=== PATIENT | female | born 1980 | race Caucasian/White ===

== ENCOUNTER 2020-08-09 00:40 | Outpatient (CLI) | payer OTHER, SELFPAY ==
[2020-08-09 18:12] LABS: SARS-CoV-2 RNA PCR Negative
== END 2020-08-09 00:41 | disposition home or self-care (01) ==
LOC: ANHCOVIDDT 00:41
PROVIDERS: Anesthesiology; Visit Provider Obstetrics & Gynecology
DX: Z01.812 Encounter for preprocedural laboratory examination (principal); Z20.828 Contact with and (suspected) exposure to other viral communicable diseases
CPT/HCPCS: 87635; C9803; U0003

== ENCOUNTER 2020-08-11 02:03 | Day surgery (SDC) | payer OTHER, SELFPAY ==
[2020-07-26 14:49] VITALS: BMI 27.6
[2020-08-11] VITALS (8 sets, daily range): BP systolic 122–157; BP diastolic 84–107; PULSE 56–99; RESP 14–20; TEMP 36.3–37.1; O2SAT 99–100
--- NOTE | 2020-08-11 05:38 | WPDANESEPP ---
Anes - Eval Pre Procedure Procedure: Operation Date: 08/11/20 07:30 Proposed Procedures p Laparoscopic Bilateral Tubal Sterilization with Cautery - Mindy Moncada MD Date/Time: 08/11/20 05:38 Pre Op Diagnosis: sterilzation Patient Data Age: 39 Gender: F Height: 5 ft 5 in Weight: 75.3 kg Allergies Allergy/AdvReac Type Severity Reaction Status Date / Time Opioids - Morphine Analogues AdvReac Intermediate vomit/ Verified 07/26/20 14:46 nausea Home Medications Medication Instructions Recorded Confirmed Type bupropion HCl [Wellbutrin XL] 300 mg PO QAM 07/26/20 07/26/20 History fexofenadine [Ofe Allergy] 60 mg PO Q12H 07/26/20 07/26/20 History hydroxyzine HCl 50 mg PO DAILY 07/26/20 07/26/20 History lamotrigine 200 mg PO BID 07/26/20 07/26/20 History melatonin 10 mg PO HS PRN 07/26/20 07/26/20 History valacyclovir 200 mg BYMOUTH PRN PRN 07/26/20 07/26/20 History Patient hx anesthesia problems: post op nausea/vomiting Family hx anesthesia problems: none PMFSH Past Medical History Medical History Anxiety and depression Bipolar 1 disorder History of alcohol abuse History of smoking History of substance abuse PONV (postoperative nausea and vomiting) Vapes nicotine containing substance Surgical History Surgical History (Updated 08/11/20 @ 05:41 by Bo Fletcher CRNA) History of cholecystectomy Social History Social History Smoking packs per day: 1 Smoking cigarettes per day: 20.0 Years smoked: 20 Smoking pack-years: 20.00 Smoking status: Former smoker Tobacco type: cigarettes Smokeless tobacco user: other Smoking end date: 02/12/19 Additional smoking assessment comments: E cig at this time Alcohol intake: former Alcohol use details: Clean for 2 years Substance use: former Substance use type: former substance user Other substance usage details: 2 years clean Living arrangements: with family Gender identity (if verbalized by the patient): Female Sexual Orientation (if Verbalized by the Patient): Straight or Heterosexual Spiritual care concerns: No Exam Day of Procedure 08/11/20 05:38
--- NOTE | 2020-08-11 06:07 | ECG_ITS ---
Measurements Intervals [place] Rate: 72 P: 34 HI: 166 QRS: -17 QRSD: 104 T: -8 QT: 394 QTc: 432 Interpretive Statements SINUS RHYTHM DELAYED PRECORDIAL R/S TRANSITION VOLTAGE CRITERIA FOR LVH BORDERLINE T WAVE ABNORMALITY- ANTEROLAT/INF LEADS BASELINE ARTIFACT- I, III, AVR, AVL BORDERLINE ECG Electronically Signed On 08-11-2020 8:11:51 CDT by Raf Pisano D.O.
--- NOTE | 2020-08-11 07:07 | WPDANESEFPP ---
Anes - Eval Final PreProcedure Day of Procedure 08/11/20 07:07 Patient weight: overweight Heart: regular rate and rhythm Lungs: clear to auscultation Airway: Mallampati scale class II Neurological: alert and oriented Last oral intake: >/= 8 hours ASA classification: III Emergent: no Anesthetic plan: proceed Anesthesia type and monitoring: general ETT and standard monitoring Informed Consent: The patient's anesthetic plan and its attendant risks and benefits were discussed with the patient/family/POA. Questions were solicited and answers provided to the satisfaction of the patient/family/POA.
--- NOTE | 2020-08-11 07:08 | WPDHPUPDATE1 ---
History and Physical Update Update Date/Time: 08/11/20 07:08 History and Physical has been reviewed, including an updated exam of the patient. There are NO changes in the patient's condition. Risks, benefits, and alternatives have been discussed and questions answered. Patient agrees to proceed with procedure.
[2020-08-11] MEDS: LACTATED RINGERS 1,000 ML 30 ML IV CONT ×2 (07:12→08:49)
[2020-08-11] MEDS: ACETAMINOPHEN 500 MG TABLET 1000 MG PO (07:15)
[2020-08-11] MEDS: KETOROLAC 15 MG/ML VIAL (*BKC) IV PUSH (07:15)
--- NOTE | 2020-08-11 08:09 | PM.PROC ---
Procedure Note - Detailed Date of procedure: 08/11/20 Pre-op diagnosis: sterilzation Post-op diagnosis: same Procedure performed: Laparoscopic bilateral tubal ligation Description of procedure: Patient was taken the operating room. She has prepped draped in the dorsal lithotomy position after induction of general anesthesia. A 5 mm abdominal incision was made in left upper quadrant of the abdomen with scalpel. A 5 mm trocars inserted the intra-abdominal cavity under direct visualization of the scope. Pneumoperitoneum was achieved. A 5 mm periumbilical incision was made using a scalpel on the abdominal scan. A 5 mm trocar was inserted the intra-abdominal cavity under visualization of the scope. The fallopian tube was grasped with the bipolar cautery in the ampullary region. It was completely desiccated in a 1.5 cm area of the fallopian tube. This was performed in identical fashion on the contralateral side. The instruments were withdrawn. The pneumoperitoneum was reduced. The trocars were removed. The skin was closed with subcuticular 4 Monocryl. This incisions were covered with Dermabond. The patient tolerated the procedure well. She was taken to recover room in stable condition. Anesthesia: GETA Surgeon: Mindy Moncada MD Estimated blood loss (mL): 10 Drains: No Packing: No Pathology: none sent Complications: No immediate complications Condition: stable Disposition: PACU Findings: Normal female pelvic anatomy.
--- NOTE | 2020-08-11 10:38 | SUR.PHASEII ---
1015 - pt's sister called in regards to ride.
== END 2020-08-11 11:10 | disposition home or self-care (01) ==
PROVIDERS: PCP Nurse Practitioner; Visit Provider Obstetrics & Gynecology
PROC: (CPT 58671; principal; 2020-08-11 07:30)
DX: Z30.2 Encounter for sterilization (principal); F31.9 Bipolar disorder, unspecified; F41.8 Other specified anxiety disorders; F17.290 Nicotine dependence, other tobacco product, uncomplicated
CPT/HCPCS: 58670; 93005; A9270; J1100; J1200; J1885; J2250; J2405; J2704; J2710; J3010; J7120

== ENCOUNTER 2021-06-06 16:31 | Emergency (ER) | payer OTHER, SELFPAY ==
[2021-06-06 16:44] VITALS: BP 138/90; PULSE 76; RESP 20; TEMP 36.7; O2SAT 100
--- NOTE | 2021-06-06 17:02 | ED.SKABFB ---
HPI - Skin/Abscess/Foreign Bdy General Chief complaint: Skin/Abscess/Foreign Body Stated complaint: knots under arms Time Seen by Provider: 06/06/21 17:02 Source: patient and family History of Present Illness HPI narrative: patient presents with tender areas under her left axillae. no drainage no history of abscess. Related Data Home Medications Medication Instructions Recorded Confirmed bupropion HCl [Wellbutrin XL] 300 mg PO QAM 07/26/20 06/06/21 hydroxyzine HCl 50 mg PO Q6H PRN 07/26/20 06/06/21 lamotrigine 200 mg PO BID 07/26/20 06/06/21 melatonin 10 mg PO HS PRN 07/26/20 06/06/21 bupropion HCl 150 mg PO QAM 06/06/21 06/06/21 Allergies Allergy/AdvReac Type Severity Reaction Status Date / Time Opioids - Morphine Analogues AdvReac Intermediate RECOVERING Verified 06/06/21 16:55 ADDICT, N/V Review of Systems Review of Systems: CONSTITUTIONAL: Denies fever, chills, or sweats. EYES: Denies visual changes, redness, or discharge. ENT: Denies rhinorrhea, congestion, sore throat, or otalgia. CARDIOVASCULAR: Denies chest pain, palpitations, or edema. RESPIRATORY: Denies cough or dyspnea. GASTROINTESTINAL: Denies abdominal pain, nausea, vomiting, or diarrhea. GENITOURINARY: Denies dysuria or hematuria. SKIN: Denies rash or itching. MUSCULOSKELETAL: Denies back pain, joint pain, or myalgia. NEUROLOGIC: Denies headache, numbness, or weakness. PSYCHIATRIC: Denies anxiety or depression. [facility] Past Medical History Medical History Anxiety and depression Bipolar 1 disorder History of alcohol abuse History of smoking History of substance abuse PONV (postoperative nausea and vomiting) Vapes nicotine containing substance Surgical History Surgical History (Updated 08/11/20 @ 05:41 by Bo Fletcher CRNA) History of cholecystectomy Social History Social History Smoking packs per day: 1 Smoking cigarettes per day: 20.0 Years smoked: 20 Smoking pack-years: 20.00 Smoking status: Former smoker Tobacco type: cigarettes Smokeless tobacco user: other Smoking end date: 04/10/19 Additional smoking assessment comments: E cig at this time Alcohol intake: former Alcohol use details: Clean for 2 years Substance use: former Substance use type: former substance user Other substance usage details: 2 years clean Gender identity (if verbalized by the patient): Female Spiritual care concerns: No Comments At time of signature, agree with nursing past medical, surgical, social and family history. There is no relevant family history pertinent to the presenting complaint Exam Narrative: GENERAL: Well-appearing, well-nourished, and in no acute distress. HEAD: Normocephalic, atraumatic. EYES: PERRLA and EOMI. ENT: Nares clear, no rhinorrhea or epistaxis. Mucous membranes moist. NECK: Supple. CHEST: Clear to auscultation. No respiratory distress. HEART: Regular rate and rhythm. No murmur heard. Normal peripheral pulses. ABDOMEN: Soft, nontender, nondistended, normal active bowel sounds. 2 cm area of tenderness and redness under left axillary no fluctuation no induration no need for I&D. 3 cm area under right axilla area no fluctuance no induration no need for I&D EXTREMITIES: Normal range of motion. No edema. SKIN: Warm, dry, no rash. NEURO: No focal deficits. Alert and oriented x3. [place] Coma Scale Eye Opening: Spontaneous 4 Hardik Coma Scale Motor: Obeys Commands 6 Hardik Coma Scale Verbal: Oriented 5 [place] Coma Scale Total 15 Course Vital Signs Vital signs: Vital Signs Temperature 36.7 C 06/06/21 16:44 Pulse Rate 76 06/06/21 16:44 Respiratory Rate 20 06/06/21 16:44 Blood Pressure 138/90 06/06/21 16:44 Pulse Oximetry 100 06/06/21 16:44 Temperature 36.7 C 06/06/21 16:44 Pulse Rate 76 06/06/21 16:44 Respiratory Rate 20 06/06/21 16:44 Blood Pressure 138/90 06/06/21 16:44 Pulse Oximetry 100
== END 2021-06-06 17:14 | disposition home or self-care (01) ==
PROVIDERS: Emergency Provider Nurse Practitioner Family; PCP Nurse Practitioner
DX: L02.412 Cutaneous abscess of left axilla (principal); L02.411 Cutaneous abscess of right axilla; F17.200 Nicotine dependence, unspecified, uncomplicated; F41.9 Anxiety disorder, unspecified; F31.9 Bipolar disorder, unspecified
CPT/HCPCS: 99213; G0463

== ENCOUNTER 2022-03-03 10:03 | Outpatient (CLI) | payer OTHER, SELFPAY ==
--- NOTE | ~2022-03-03 | MMUS_ITS ---
EXAMINATION: MM diagnostic laina BI w kristine, US breast BI complete HISTORY: Bilateral breast lumps. Right breast pain. TECHNIQUE: Additional 3-D tomosynthesis images of the breasts were performed and synthetic 2-D images were generated. CAD analysis was submitted and interpreted. High resolution complete bilateral breas t ultrasound was performed. COMPARISON: 03/03/2022 BREAST PARENCHYMAL COMPOSITION: The breasts are heterogenously dense, which may obscure small masses FINDINGS: MAMMOGRAPHIC FINDINGS: There are no suspicious masses, calcifications or architectural distortion in either breast to sugges t malignancy. ULTRASOUND: Complete bilateral US of all 4 quadrants of the breasts and retroareolar region was reviewed. In the right breast at 12:30 there is a 5 mm cyst. There are small bilateral axillary lymph nodes with tesfaye l fatty hilum. No sonographic evidence for malignancy in either breast. IMPRESSION: 1. No evidence for malignancy in either breast. 2. Routine yearly screening mammogram and regular clinical breast examination are recommended. BI-RADS Category 2: Benign finding(s). Reviewed, dictated and finalized at location A. IMPRESSION: 1. No evidence for malignancy in either breast. 2. Routine yearly screening mammogram and regular clinical breast examination a re recommended. BI-RADS Category 2: Benign finding(s).
== END 2022-03-03 10:04 | disposition home or self-care (01) ==
PROVIDERS: PCP Nurse Practitioner; Visit Provider Nurse Practitioner Obstetrics & Gynecology
DX: Z12.31 Encounter for screening mammogram for malignant neoplasm of breast (principal); N63.20 Unspecified lump in the left breast, unspecified quadrant
CPT/HCPCS: 76641; 77062; 77066; G0279

== ENCOUNTER 2022-04-18 00:11 | Day surgery (SDC) | payer OTHER, SELFPAY ==
[2022-04-11 11:55] VITALS: BMI 25.1
--- NOTE | 2022-04-11 12:05 | PC.NURSE ---
Report to the Outpatient Waiting Room, entrance under the green pavilion located off [facility], at time 0630 on date 04/18/22. OR Time: 0830. - You and your visitor will be asked a series of questions to screen for COVID 19 for your protection. - Only one visitor is allowed at this time. - The patient visitor is requested to leave or wait in car when not with patient. - A mask is required within the hospital. Patients may have clear liquids (water, carbonated beverages, clear teas, apple juice) until 3 hours prior to surgery with a maximum of 20 ounces. - No food from midnight until time of surgery - Infants may have breast milk until 4 hours before surgery, formula 6 hours prior to surgery. - Children will be allowed to drink immediately following surgery. If applicable, please bring a bottle or sippy cup to assist with drinking. Juice, water, soda, and popsicles are readily available. For infants on formula, please bring formula the day of surgery. Pacifiers are allowed. Take the following medications with a SIP of water the morning of surgery: BUPROPION, LAMOTRIGINE, SEROQUEL, VALACYCLOVIR, HYDROXYZINE (IF NEEDED) Medications to discontinue per physician: VITAMINS/SUPPLEMENTS Date to take last dose: 04/14/22 Please no make-up, nail bengali, hairspray, perfume, deodorant, or body powder the day of surgery. No jewelry (including any body piercings) or valuables the day of surgery, leave them at home. Please take a shower or bath the night before, or the morning of, surgery with an antibacterial soap. Wear comfortable, loose fitting clothing. - Jewelry must be removed prior to entering the operating room. Rings and piercings that are not removed may be cut off. - The hospital will not accept responsibility for valuables. - Please leave all valuables, including medications, at home the day of surgery. If you are going home after surgery, a licensed courtesy driver must drive you home. - NO public transportation without another adult. - We recommend that an adult stay with you for 24 hours following discharge. - We also recommend that you do not drive, make important decision, drink alcoholic beverages, or take any drugs that were not prescribed by your health care provider for at least 24 hours after your discharge time. Follow any additional instructions given to you from your surgeon. If you or anyone in your household have experienced Covid symptoms in the past week, please notify your surgeon or the nurse liaison at the phone number below for possible testing. Telephone instructions given to AILYN OLMSTEAD and asked if any additional questions and then verbalized understanding. Patient advised to call surgeon office or pre surgery nurse liaison [phone] if any additional questions.
--- NOTE | 2022-04-17 13:13 | P.PNAN_ITS ---
Anes - Initial Pre Proc Eval Procedure: Operation Date: 04/18/22 08:30 Proposed Procedures p Hysteroscopy Dilation and Curettage Lidia Endometrial Ablation - Mindy Moncada MD Date/Time: 04/17/22 13:13 Surgeon: Mindy Moncada MD Pre Op Diagnosis: Menorrhagia Patient Data Age: 41 Gender: F Height: 1.65 m Weight: 68.5 kg Allergies Allergy/AdvReac Type Severity Reaction Status Date / Time Opioids - Morphine Analogues AdvReac Intermediate RECOVERING Verified 04/18/22 06:55 ADDICT, N/V Home Medications Medication Instructions Recorded Confirmed Type bupropion HCl 300 mg 24 hr tablet, 300 mg PO QAM 07/26/20 04/18/22 History extended release (Wellbutrin XL) hydroxyzine HCl 50 mg tablet 50 mg PO Q6H PRN Anxiety 07/26/20 04/18/22 History lamotrigine 200 mg tablet 200 mg PO BID 07/26/20 04/18/22 History melatonin 10 mg capsule 10 mg PO HS PRN Insomnia 07/26/20 04/18/22 History bupropion HCl 150 mg 24 hr tablet, 150 mg PO QAM 06/06/21 04/18/22 History extended release quetiapine 50 mg tablet (Seroquel) 50 mg PO BID 04/11/22 04/18/22 History valacyclovir 500 mg tablet 1 tablet PO DAILY PRN Cold Sores 04/11/22 04/18/22 History Patient hx anesthesia problems: none Family hx anesthesia problems: none Results Review: All pre-operative results and documents have been reviewed as part of the pre- operative evaluation. [facility] Past Medical History Medical History Anxiety and depression Bipolar 1 disorder History of alcohol abuse History of smoking History of substance abuse PONV (postoperative nausea and vomiting) Vapes nicotine containing substance Surgical History Surgical History (Updated 08/11/20 @ 05:41 by Bo Fletcher CRNA) History of cholecystectomy Social History Social History Smoking packs per day: 1 Smoking cigarettes per day: 20.0 Years smoked: 18 Smoking pack-years: 18.00 Smoking status: Former smoker Tobacco type: e-cigarettes/vaping Smokeless tobacco user: other Smoking end date: 11/05/18 Additional smoking assessment comments: QUIT CIGARETTES, NOW VAPING Alcohol intake: former Alcohol use details: 4 YEARS SOBER Substance use: former Substance use type: former substance user Other substance usage details: 2 years clean Last use: 4 YEARS Living arrangements: with family Gender identity (if verbalized by the patient): Female Sexual Orientation (if Verbalized by the Patient): Straight or Heterosexual Spiritual care concerns: No Anes - Eval Final PreProcedure Day of Procedure 04/17/22 13:13 Patient weight: normal Heart: regular rate and rhythm Lungs: clear to auscultation Airway: Mallampati scale class II Neurological: alert and oriented Last oral intake: >/= 8 hours ASA classification: II Emergent: no Anesthetic plan: proceed Anesthesia type and monitoring: general GIVS and standard monitoring Results Review: All pre-operative results and documents have been reviewed as part of the pre-operative evaluation. Informed Consent: The patient's anesthetic plan and its attendant risks and benefits were discussed with the patient/family/POA. Questions were solicited and answers provided to the satisfaction of the patient/family/POA.
[2022-04-18 06:52] VITALS: BP 132/93; PULSE 80; RESP 18; TEMP 36.9; O2SAT 100
[2022-04-18] MEDS: LACTATED RINGERS 1,000 ML 30 ML IV CONT (07:05)
[2022-04-18] MEDS: ACETAMINOPHEN 500 MG TABLET 1000 MG PO (07:06)
--- NOTE | 2022-04-18 08:28 | WPDHPUPDATE1 ---
History and Physical Update Update Date/Time: 04/18/22 08:28 History and Physical has been reviewed, including an updated exam of the patient. There are NO changes in the patient's condition. Risks, benefits, and alternatives have been discussed and questions answered. Patient agrees to proceed with procedure.
[2022-04-18 09:10] VITALS: BP 146/85; PULSE 76; RESP 12; O2SAT 100
--- NOTE | 2022-04-18 09:15 | W.PM.PROC2 ---
Procedure Note - Detailed Date of Procedure 04/18/22 Pre-op Diagnosis Menorrhagia Post-op Diagnosis Same Procedure Performed endometrial ablation with hysteroscopy d&c Surgeon Mindy Moncada MD Anesthesia MAC Indications Severe menorrhagia Findings Normal vulva vagina and cervix. Normal endometrium. Description of Procedure The patient was taken to the operating room. She was prepped and draped in the dorsal lithotomy position after induction of mac anesthesia. A speculum was placed in the vagina. Cervix grasped with a tenaculum. The cervix was dilated to about 1 cm. The hysteroscope was inserted. The above findings were noted. Endometrial curettage was performed with a medium-size curette. All surfaces of the endometrium were affected by the curettage. The specimens were collected and sent to pathology. Measurements were taken of the uterus and cervix. The uterine length was then entered into the hand piece of the Lidia device. The device was inserted into the intrauterine cavity. The array of the device was expanded. The balloon cuff was inflated. A good seal was achieved. The energy and safety cycles were initiated and completed. The array was collapsed and the instrument was withdrawn after deflating the balloon cuff. Hysteroscope was reinserted. Above findings were noted. The hysteroscope was removed. The patient tolerated the procedure well. The speculum and tenaculum were removed. She was taken to recovery in stable condition. Sponge lap and needle counts were correct x2. Estimated Blood Loss 15 Pathology Yes Complications No immediate complications Condition Stable Disposition Same day
[2022-04-18 09:30] VITALS: BP 138/90; PULSE 57; RESP 16
[2022-04-18] MEDS: KETOROLAC 30 MG/ML VIAL (*BKC) IV PUSH (10:04)
== END 2022-04-18 11:00 | disposition home or self-care (01) ==
PROVIDERS: Visit Provider Obstetrics & Gynecology
PROC: 0U5B8ZZ Destruction of Endometrium, Via Natural or Artificial Opening Endoscopic (ICD-10-PCS; CPT 58563; principal; 2022-04-18 08:30)
DX: N92.0 Excessive and frequent menstruation with regular cycle (principal); F31.9 Bipolar disorder, unspecified; F41.9 Anxiety disorder, unspecified; F17.290 Nicotine dependence, other tobacco product, uncomplicated
CPT/HCPCS: 58563; 88305; A9270; J1885; J2250; J2704; J3010; J7120

== ENCOUNTER 2022-11-04 12:59 | Outpatient (CLI) | payer OTHER, SELFPAY ==
--- NOTE | 2022-11-04 13:14 | ECG_ITS ---
Measurements Intervals [place] Rate: 70 P: 53 [place]: 163 QRS: -16 QRSD: 101 T: 33 QT: 406 QTc: 440 Interpretive Statements SINUS RHYTHM BORDERLINE ST-T WAVE ABNORMALITY- DIFFUSE LEADS BORDERLINE ECG COMPARED TO ECG 08/11/2020 07:17:14 NO SIGNIFICANT CHANGES Electronically Signed On 11-05-2022 7:33:22 [employer] by Raf Pisano D.O.
== END 2022-11-04 13:00 | disposition home or self-care (01) ==
LOC: ANHCARD 13:01
PROVIDERS: Visit Provider Anesthesiology
DX: Z87.891 Personal history of nicotine dependence (principal); Z01.818 Encounter for other preprocedural examination; R94.31 Abnormal electrocardiogram [ECG] [EKG]
CPT/HCPCS: 93005

== ENCOUNTER 2022-11-08 00:56 | Day surgery (SDC) | payer OTHER, SELFPAY ==
[2022-10-23 15:58] VITALS: BMI 24.1
--- NOTE | 2022-10-23 16:11 | PC.NURSE ---
Addendum entered by Aaliyah Guaman RN 10/23/22 17:32: surgery date 11/08/2022 Original Note: Report to the Outpatient Waiting Room, entrance under the green pavilion located off [facility], at time 0600 on date 11/08/2021. Planned Procedure Time: 0730. Time changes happen often and if your time is changed the preop area will call you the afternoon before. - You and your visitor will be asked to self-screen and do not enter if you have any COVID symptoms. - Only one visitor is requested with a max of two and NO children visitors are allowed at this time. - The patient visitor may be requested to leave or wait in car when not with patient due to distancing restrictions. - A mask is optional within the hospital. Patients may have clear liquids (water, carbonated beverages, clear teas, apple juice) until 3 hours prior to surgery with a maximum of 20 ounces. 0430 - No food from midnight until time of surgery - Infants may have breast milk until 4 hours before surgery, infant formula 6 hours prior to surgery. - Children will be allowed to drink immediately following surgery. If applicable, please bring a bottle or sippy cup to assist with drinking. Juice, water, soda, and popsicles are readily available. For infants on formula, please bring formula the day of surgery. Pacifiers are allowed. Take the following medications with a SIP of water the morning of surgery: Wellbutrin, Lamictal, Seroquel, Vistaril, Meclizine, Valacyclovir Medications to discontinue per physician None Date to take last dose N/A Please no make-up, nail uzbek, hairspray, perfume, deodorant, or body powder the day of surgery. No jewelry (including any body piercings) or valuables the day of surgery, leave them at home. Please take a shower or bath the night before, or the morning of, surgery with an antibacterial soap. Wear comfortable, loose fitting clothing. Children are encouraged to wear pajamas. - Jewelry must be removed prior to entering the operating room. Rings and piercings that are not removed may be cut off. - The hospital will not accept responsibility for valuables. - Please leave all valuables, including medications, at home the day of surgery. If you are going home after surgery, a licensed class c truck driver must drive you home. - NO public transportation without another adult if you receive anesthesia. - We recommend that an adult stay with you for 24 hours following discharge. - We also recommend that you do not drive, make important decision, drink alcoholic beverages, or take any drugs that were not prescribed by your health care provider for at least 24 hours after your discharge time. For Pediatric surgeries, we recommend two adults accompany the child home. Follow any additional instructions given to you from your surgeon. If you or anyone in your household have experienced Covid symptoms in the past week, please notify your surgeon or the nurse liaison at the phone number below for possible testing. Telephone instructions given to Leana Mao and asked if any additional questions and then verbalized understanding. Patient advised to call surgeon office or pre surgery nurse liaison [phone] if any additional questions.
--- NOTE | 2022-11-07 14:34 | P.PNAN_ITS ---
Anes - Initial Pre Proc Eval Procedure: Operation Date: 11/08/22 07:30 Proposed Procedures p Robotic Assisted Hysterectomy with Bilateral Salpingectomy - Mindy Moncada MD Date/Time: 11/07/22 14:34 Surgeon: Mindy Moncada MD Pre Op Diagnosis: menorrhaghia Patient Data Age: 41 Gender: F Height: 1.65 m Weight: 65.9 kg Allergies Allergy/AdvReac Type Severity Reaction Status Date / Time Opioids - Morphine Analogues AdvReac Intermediate RECOVERING Verified 04/18/22 06:55 ADDICT, N/V Home Medications Medication Instructions Recorded Confirmed Type bupropion HCl 300 mg 24 hr tablet, 300 mg PO QAM 07/26/20 10/23/22 History extended release (Wellbutrin XL) hydroxyzine HCl 50 mg tablet 50 mg PO Q6H PRN Anxiety 07/26/20 10/23/22 History lamotrigine 200 mg tablet 200 mg PO BID 07/26/20 10/23/22 History bupropion HCl 150 mg 24 hr tablet, 150 mg PO QAM 06/06/21 10/23/22 History extended release quetiapine 50 mg tablet (Seroquel) 50 mg PO BID 04/11/22 10/23/22 History valacyclovir 500 mg tablet 1 tablet PO DAILY PRN Cold Sores 04/11/22 11/08/22 History meclizine 25 mg tablet 25 mg PO PRN 10/23/22 10/23/22 History Patient hx anesthesia problems: none Family hx anesthesia problems: none Results Review: All pre-operative results and documents have been reviewed as part of the pre- operative evaluation. [facility] Past Medical History Medical History Anxiety and depression Bipolar 1 disorder History of alcohol abuse History of smoking History of substance abuse Vapes nicotine containing substance Surgical History Surgical History (Updated 08/11/20 @ 05:41 by Bo Fletcher CRNA) History of cholecystectomy Social History Social History Smoking packs per day: 1.5 Smoking cigarettes per day: 30.0 Years smoked: 25 Smoking pack-years: 37.50 Smoking status: Former smoker Tobacco type: e-cigarettes/vaping Smokeless tobacco user: other Smoking end date: 11/05/18 Additional smoking assessment comments: QUIT CIGARETTES, NOW VAPING Alcohol intake: former Alcohol use details: Recovering Alcoholic Substance use: former Substance use type: crack/cocaine and methamphetamine Other substance usage details: Jun 2022- 4yrs clean Last use: 4 YEARS Living arrangements: with family Gender identity (if verbalized by the patient): Female Sexual Orientation (if Verbalized by the Patient): Straight or Heterosexual Spiritual care concerns: No Anes - Eval Final PreProcedure Day of Procedure 11/07/22 14:34 Patient weight: normal Heart: regular rate and rhythm Lungs: clear to auscultation Airway: Mallampati scale class II Neurological: alert and oriented Last oral intake: >/= 8 hours ASA classification: III Emergent: no Anesthetic plan: proceed Anesthesia type and monitoring: general ETT and standard monitoring Results Review: All pre-operative results and documents have been reviewed as part of the pre- operative evaluation. Informed Consent: The patient's anesthetic plan and its attendant risks and benefits were discussed with the patient/family/POA. Questions were solicited and answers p rovided to the satisfaction of the patient/family/POA.
[2022-11-08] VITALS (13 sets, daily range): BP systolic 124–154; BP diastolic 77–97; PULSE 55–84; RESP 10–16; TEMP 36.2–37; O2SAT 97–100
[2022-11-08] MEDS: ACETAMINOPHEN 500 MG TABLET 1000 MG PO ×3 (06:30→21:11)
[2022-11-08] MEDS: LACTATED RINGERS 1,000 ML 30 ML IV CONT ×2 (06:46→09:14)
[2022-11-08] MEDS: KETOROLAC 15 MG/ML VIAL (*BKC) IV PUSH (06:56)
--- NOTE | 2022-11-08 07:11 | WPDHPUPDATE1 ---
History and Physical Update Update Date/Time: 11/08/22 07:11 History and Physical has been reviewed, including an updated exam of the patient. There are NO changes in the patient's condition. Risks, benefits, and alternatives have been discussed and questions answered. Patient agrees to proceed with procedure.
[2022-11-08] MEDS: MORPHINE SULFATE (*CRX) 2 MG/ML INJ IV PUSH (09:41)
[2022-11-08] MEDS: ONDANSETRON INJ 4 MG/2 ML VIAL IV PUSH ×3 (09:44→21:10)
--- NOTE | 2022-11-08 09:48 | W.PM.PROC2 ---
Procedure Note - Detailed Date of Procedure 11/08/22 Pre-op Diagnosis menorrhaghia Post-op Diagnosis Same Procedure Performed Robot assisted Total hysterectomy with bilateral salpingectomy. Surgeon Mindy Moncada MD Anesthesia General Indications heavy vaginal bleeding, pelvic pain Findings normal-appearing uterus, ovaries, and left tube, right tube was partially resected. Some scarring over the posterior cul-de-sac peritoneum. Description of Procedure This patient was taken to the operating room. She was prepped and draped in the dorsal lithotomy position after induction of general anesthesia. The uterine manipulator and Raphael cup were placed. This was done with a speculum and tenaculum. The speculum was placed. The cervix was grasped with a tenaculum. The stay sutures were placed at 3 and 9:00 a.m.. The stay sutures of 0 Vicryl were tied to the appropriately Size scope after it was slipped around the cervix.. The tip of the DARRELL manipulator was placed in the intrauterine cavity. The cup was slid into place around the cervix and into the fornices. It was locked into place. The sutures were then wrapped around the handle and tied under tension. A 8 mm skin incision was made in the left upper quadrant the abdomen. a 5 mm Visiport trocar was inserted into abdominal cavity and pneumoperitoneum was achieved. A 8 mm supraumbilical incision was made and a 8 mm trocar was inserted into the intrauterine cavity under direct visualization of the scope. an 8 mm incision was made in the right upper quadrant of the abdomen and an 8 mm robotic trocar was placed the inter uterine cavity under direct visualization the scope. An 11 mm trocar was inserted in the right upper quadrant of the abdomen rectal is a cystoscope after an incision was made there as well. The robot was docked. Electronic Orientation of the robot was performed. Bilateral ureteral lysis was performed. This was done from the pelvic brim down to the uterine artery. This was done with careful dissection using sharp and blunt dissection. The fallopian tubes were removed bilaterally. The mesosalpinx around the fallopian tubes were cauterized transected with LigaSure cautery. This was done in a bilateral fashion from the ovary to the uterine cornua. The fallopian tube was transected at the uterine cornu and amputated. The tube was taken out the left lower quadrant trocar site. In a stepwise fashion along the lateral aspects of the uterus the round ligament and broad ligaments were cauterized transected down to the level of the uterine arteries. A bladder flap was created in the bladder was moved distally to the end of the cervix and over the Raphael cup. The bilateral uterine arteries were cauterized and transected. Colpotomy was then performed. In a circumferential fashion the vagina was transected using unipolar cautery. The incision was made down on the Raphael cup. The uterus and cervix were taken out through the vagina. A pneumo occluder was placed in the vagina. The vaginal cuff was closed with a 0 V lock suture in a running fashion. The pelvis was irrigated with copious amounts antibiotic irrigation. The ureters were again examined and found to be intact and flowing freely under the uterine arteries into the bladder. The bladder was intact. It was examined directly. The vagina was irrigated with Betadine solution after removal of the Pneumo occluder. the trocars were removed after the robot was undocked. The skin was closed with subacute or Dermabond. The patient was taken to recovery room. She was stable condition. Sponge lap and needle counts were correct x2. Estimated Blood Loss 125 Urine Output 800 Drains Yes Packing No Pathology Yes Complications No immediate complications Condition Stable Disposition Floor
--- NOTE | 2022-11-08 11:02 | PC.NURSE ---
Patient transferred to post room #289 via (stretcher ). Support person present. Oriented to unit, room, information board, rooming in, admission packet and security measures. Patient verbalizes understanding.
[2022-11-08] MEDS: KETOROLAC 30 MG/ML VIAL (*BKC) IV PUSH ×2 (11:46→17:55)
[2022-11-08] MEDS: DEXTROSE 5%/0.45% SOD CHL 1,000 ML 125 ML IV CONT (11:46)
[2022-11-08] MEDS: QUEtiapine FUMARATE 25 MG TABLET 50 MG PO (21:10)
[2022-11-08] MEDS: lamoTRIgine 100 MG TABLET 200 MG PO (21:10)
[2022-11-09 02:35] VITALS: BP 123/76; PULSE 59; RESP 16; TEMP 36.4
[2022-11-09] MEDS: ACETAMINOPHEN 500 MG TABLET 1000 MG PO (02:45)
[2022-11-09] MEDS: KETOROLAC 30 MG/ML VIAL (*BKC) IV PUSH ×2 (02:45→08:48)
--- NOTE | 2022-11-09 08:17 | PM.GYNPNOP ---
SPRAY II PAINTER - A/P Postoperative Procedures: Procedures Operation Date: 11/08/22 07:30 Actual Procedure Side Surgeon p Robotic Assisted Hysterectomy with Bilateral Salpingectomy Bilateral Mindy Moncada MD Postoperative day: 1 Postoperative status: doing well Postoperative plan: see orders Time Spent With Patient Time: Total time spent is greater than 50% in coordination of care (as documented) at patient's floor/unit and/or counseling patient: Time with patient: less than 15 minutes SPRAY II PAINTER- PN:Subj Post-Op Subjective Date/time seen: 11/09/22 08:17 Subjective: patient reports feeling better, patient has no complaints and pain is well controlled Exam Const: General: healthy appearing, comfortable and no acute distress Resp: Auscultation: clear to auscultation bilaterally, no rales, no rhonchi and no wheezes Cardio: Rate: regular rate Heart sounds: no click, no murmurs and no rubs GI: Inspection: non-distended Auscultation: normal bowel sounds Extrem: General: normal to inspection, no pedal edema and no calf tenderness SPRAY II PAINTER - PN: Obj Data Vital Signs Vital Signs: Vital Signs - 24 hr 11/08/22 09:14 11/08/22 09:25 11/08/22 09:35 Temperature 97.2 F L Pulse Rate 65 57 L 56 L Respiratory Rate 13 10 L 13 Blood Pressure 126/88 144/77 H 136/82 Pulse Oximetry 100 100 100 Oxygen Delivery Simple Face Mask Simple Face Mask Simple Face Mask Oxygen Flow Rate 8 8 8 11/08/22 09:50 11/08/22 10:00 11/08/22 10:15 Temperature Pulse Rate 55 L 56 L 59 L Respiratory Rate 11 L 12 12 Blood Pressure 141/88 H 141/80 H 136/83 Pulse Oximetry 100 100 100 Oxygen Delivery Simple Face Mask Nasal Cannula Simple Face Mask Oxygen Flow Rate 8 2 8 11/08/22 10:30 11/08/22 10:45 11/08/22 11:54 Temperature Pulse Rate 69 58 L Respiratory Rate 12 12 Blood Pressure 142/91 H 138/97 H Pulse Oximetry 100 100 97 Oxygen Delivery Nasal Cannula Nasal Cannula Nasal Cannula Oxygen Flow Rate 2 2 2 11/08/22 11:10 11/08/22 17:00 11/08/22 17:00 Temperature 98.6 F 98.0 F Pulse Rate 69 58 L Respiratory Rate 16 16 Blood Pressure 154/84 H 132/77 Pulse Oximetry 100 100 Oxygen Delivery Room Air Oxygen Flow Rate 11/08/22 19:18 11/09/22 02:35 Temperature 97.6 F 97.5 F L Pulse Rate 80 59 L Respiratory Rate 16 16 Blood Pressure 133/82 123/76 Pulse Oximetry Oxygen Delivery Oxygen Flow Rate Intake/Output Intake/Output: Intake & Output 11/06/22 11/07/22 11/08/22 11/09/22 23:59 23:59 23:59 23:59 Intake Total 1000 Output Total 1450 Balance -450 Meds/Results Medications: Active Medications Generic Name Dose Route Start Last Admin Trade Name Freq PRN Reason Stop Dose Admin Acetaminophen 1,000 mg 11/08/22 14:53 11/09/22 02:45 Acetaminophen 500 Mg Tablet PO 1,000 mg Q6H PRN Administration Mild Pain (1-3) or Fever Hydrocodone Bitart/Acetaminophen 1 tab 11/08/22 10:59 Hydrocodone/Acetaminophen (*Crx) 5-325 Mg Tablet PO Q3H PRN Pain Rated 5 or Less Hydrocodone Bitart/Acetaminophen 1 tab 11/08/22 10:59 Hydrocodone/Acetaminophen (*Crx) 10-325 Mg Tablet PO Q3H PRN Pain Rated 6 or Greater Bupropion HCl 300 mg 11/09/22 09:00 Bupropion Hcl Xl (24 Hr) 150 Mg Tabcr PO QAM ROXANN Hydroxyzine HCl 50 mg 11/08/22 10:59 Hydroxyzine Hcl 25 Mg Tablet PO Q6H PRN Anxiety Ibuprofen 600 mg 11/08/22 10:59 Ibuprofen 600 Mg Tablet PO Q6H PRN Cramping Ketorolac Tromethamine 30 mg 11/08/22 10:59 11/09/22 02:45 Ketorolac 30 Mg/Ml Vial (*Bkc) IV PUSH 11/13/22 10:58 30 mg Q6H PRN Administration Pain Rated 4-6 Lamotrigine 200 mg 11/08/22 21:00 11/08/22 21:10 Lamotrigine 100 Mg Tablet PO 200 mg Q12HR ROXANN Administration Meclizine HCl 25 mg 11/08/22 10:59 Meclizine Hcl 25 Mg Tablet PO TID PRN Dizziness Naloxone HCl 0.1 mg 11/08/22 10:59 Naloxone Hcl 0.4 Mg/Ml Vial IV PUSH
[2022-11-09 08:20] VITALS: BP 141/80; PULSE 64; RESP 16; TEMP 37.4; O2SAT 99
[2022-11-09] MEDS: lamoTRIgine 100 MG TABLET 200 MG PO (08:59)
[2022-11-09] MEDS: QUEtiapine FUMARATE 25 MG TABLET 50 MG PO (09:00)
[2022-11-09] MEDS: buPROPion HCL XL (24 HR) 150 MG TABCR 300 MG PO (09:00)
[2022-11-09 09:50] VITALS: PULSE 64; RESP 16; O2SAT 99
--- NOTE | 2022-11-09 10:01 | WPDANESPN ---
Anes - Prog Note Post-Op Date/Time: 11/09/22 10:01 Cardiovascular status: normal Respiratory status: normal Airway patency: baseline Mental status: baseline Post-Op hydration status: normal Vital Signs: Last Vital Signs Temp 37.4 C 11/09/22 08:20 Pulse 64 11/09/22 09:50 Resp 16 11/09/22 09:50 BP 141/80 H 11/09/22 08:20 Pulse Ox 99 11/09/22 09:50 O2 Del Method Room Air 11/09/22 09:50 O2 Flow Rate 2 11/08/22 11:54 Pain Score (VAS): 01/12 I/O: Intake & Output 11/08/22 11/09/22 11/09/22 23:59 07:59 15:59 Intake Total 500 Output Total 650 Balance -150 Post-procedural complaints: nausea (Last night, but has resolved this morning ) Patient Feedback: Patient satisfied with anesthetic care.
== END 2022-11-09 11:10 | disposition home or self-care (01) ==
LOC: ANHSURGERY 05:54 → ANHOB2 11:02
PROVIDERS: Visit Provider Obstetrics & Gynecology
PROC: (CPT 58571; principal; 2022-11-08 07:30)
DX: N92.0 Excessive and frequent menstruation with regular cycle (principal); F31.9 Bipolar disorder, unspecified; F41.9 Anxiety disorder, unspecified; F17.290 Nicotine dependence, other tobacco product, uncomplicated; F10.21 Alcohol dependence, in remission; F15.21 Other stimulant dependence, in remission; F14.21 Cocaine dependence, in remission
CPT/HCPCS: 58571; S2900; 36415; 86850; 86900; 86901; 88307; 99199; A9270; J1100; J1885; J2250; J2270; J2405; J2704; J2710; J7030; J7120

== ENCOUNTER 2023-10-25 15:49 | Outpatient (CLI) | payer OTHER, SELFPAY ==
--- NOTE | ~2023-10-25 | MM_ITS ---
EXAMINATION: MM screening laina BI w kristine HISTORY: Screening mammogram TECHNIQUE: Craniocaudal and mediolateral oblique 3-D tomosynthesis images were obtained and synthetic 2-D images were generated. CAD analysis was submitted and interpreted. COMPARISON: March 03, 2022 diagnostic bilateral mammogram and complete right breast ultrasound examin ation BREAST PARENCHYMAL COMPOSITION: The breasts are heterogeneously dense, which may obscure small masses . FINDINGS: There is no evidence of suspicious mass, calcification, or architectural distortion to sugg est malignancy in either breast. There has been no suspicious interval change. IMPRESSION: 1. No mammographic evidence of malignancy. 2. Recommend routine screening mammography in one year. BI-RADS Category 1: Negative Reviewed, dictated and finalized at location A. 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
== END 2023-10-25 15:50 | disposition home or self-care (01) ==
PROVIDERS: Visit Provider Nurse Practitioner Obstetrics & Gynecology
DX: Z12.31 Encounter for screening mammogram for malignant neoplasm of breast (principal)
CPT/HCPCS: 77063; 77067

== ENCOUNTER 2024-11-19 12:37 | Outpatient (CLI) | payer OTHER, SELFPAY ==
--- NOTE | ~2024-11-19 | MMUS_ITS ---
EXAMINATION: MM diagnostic laina BI w kristine, US breast RT limited HISTORY: Right breast lump TECHNIQUE: 3-D tomosynthesis images of the breasts were performed and synthetic 2-D images were gener ated. CAD analysis was submitted and interpreted. High resolution limited right breast ultrasound was performed. COMPARISON: 10/25/2023, 03/03/2022 BREAST PARENCHYMAL COMPOSITION:Dense: The breasts are extremely dense, which lowers the sensitivity o f mammography. FINDINGS: MAMMOGRAPHIC FINDINGS: Parenchymal pattern of the breasts is unchanged. No distinct mass lesion or distortion seems. No susp icious mammographic or calcification. ULTRASOUND: Sonographic imaging of the area of clinical concern demonstrates a 10 x 7 x 5 mm anechoic cyst, mildl y lobulated, wider than tall, with posterior through transmission. There is an additional 4 mm cyst a t the 11:00 position right breast, 4 cm from the nipple. IMPRESSION: Small right breast cysts, as detailed above. No findings which are suspicious for malignancy. BI-RADS Category 2: Benign finding(s). Reviewed, dictated and finalized at location . 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 No findings which are suspicious for malignancy. BI-RADS Category 2: Benign finding(s).
== END 2024-11-19 12:38 | disposition home or self-care (01) ==
LOC: ANHIMG 12:39
PROVIDERS: PCP Obstetrics & Gynecology; Visit Provider Nurse Practitioner
DX: N63.0 Unspecified lump in unspecified breast (principal)
CPT/HCPCS: 76642; 77062; 77066; G0279